=== PATIENT | male | born 2000 | race Caucasian/White ===

== ENCOUNTER 2024-07-05 04:05 | Emergency (ER) | payer BC, SELFPAY ==
[2024-07-05 04:20] VITALS: BP 163/91; PULSE 91; RESP 20; TEMP 36.6; O2SAT 99; BMI 32.1
--- NOTE | 2024-07-05 04:28 | ECG_ITS ---
[employer] Test Date: 2024-07-05 Pat Name: Ren Mckeon Department: Room: Gender: Male [employer]: : 2000 Requested By: Kenneth Rios Order Number: [id number] Sharmin MD: Rolando Samano M.D. Measurements Intervals [place] Rate: 80 P: 69 GA: 145 QRS: 55 QRSD: 100 T: 55 QT: 351 QTc: 406 Interpretive Statements SINUS RHYTHM WITH SINUS ARRHYTHMIA NONSPECIFIC T-WAVE ABNORMALITY No previous ECG available for comparison Electronically Signed On 07-05-2024 13:17:18 [employer]LECOM ENGINE[employer] by Rolando Samano M.D. [email or web address]
--- NOTE | 2024-07-05 04:34 | ED_ITS ---
Documented by User: Kenneth Rios DO 07/05/24 04:36 HPI - Chest Pain 2 General: Chief Complaint: Allergic Reaction Stated Complaint: Sob n/ tingling weak believes new med reaction Time Seen by Provider: 07/05/24 04:38 History of Present Illness: Patient presents to the ER with complaints of chest tightness and shortness of breath that woke him up in the middle of the night. Patient says he started new blood pressure pill about 2 days ago and this may be the cause of the reaction. Patient's got some anxiety and makes everything worse. Patient noticed the diffuse rash all across his chest as well. Patient is never had chest pain before and has no cardiac history. Related Data Previous Rx's Medication Instructions Recorded cefdinir 300 mg capsule 300 mg PO BID 10 days #20 caps 06/22/24 amlodipine 5 mg tablet 5 mg PO DAILY #30 tabs 07/05/24 prednisone 20 mg tablet 40 mg (2 x 20 mg) PO DAILY #6 tabs 07/05/24 Allergies Allergy/AdvReac Type Severity Reaction Status Date / Time No Known Allergies Allergy Verified 06/22/24 17:17 Review of Systems 2 General: Reports: 10 or more systems reviewed and unremarkable except in HPI and below PFSH ED 2 PFSH: Social History Smoking and tobacco/nicotine status: never used tobacco/nicotine Physical Exam 2 Const: COMMON NORMALS: no acute distress, average body habitus, patient oriented x3, no limitations, healthy appearing, alert and well nourished HENMT: COMMON NORMALS: normocephalic, atraumatic, hearing grossly normal bilaterally, external ears normal, Normal external nose present and moist oral mucous membranes HEAD & SCALP: normocephalic and atraumatic NOSE: Normal external nose present EXTERNAL EAR: Yes external ears normal Neck/C-Spine: COMMON NORMALS: no JVD Chest: OTHER: Widespread red blotchy rash across the entire trunk region Resp: COMMON NORMALS: normal respiratory effort, No retractions, No use of accessory muscles and clear to auscultation bilaterally AUSCULTATION: clear to auscultation bilaterally Cardio: COMMON NORMALS: no JVD, regular rate, regular rhythm, S1 normal heart sound present, S2 normal heart sound present, No gallops present (Cardio), No clicks present (Cardio), No murmurs present (Cardio) and No rub (Cardio) R ATE: regular rate RHYTHM: regular rhythm HEART SOUNDS: S1 normal heart sound present and S2 normal heart sound present GI: COMMON NORMALS: Normal to inspection, nondistended, normoactive bowel sounds present, Soft to palpation, non-tender, No hepatosplenomegaly present and no masses PALPATION: Yes Soft to palpation and Yes No hepatosplenomegaly present Neuro: COMMON NORMALS: patient oriented x3 SENSORIUM/ORIENTATION: Yes alert Course 2 Vital Signs: Vital signs: Vital Signs Temperature 98 F 07/05/24 04:20 Pulse Rate 60 07/05/24 06:13 Respiratory Rate 11 L 07/05/24 06:13 Blood Pressure 138/61 07/05/24 06:13 Pulse Oximetry 96 07/05/24 06:13 MDM - Chest Pain Medical Records I reviewed the patient's medical records. Lab Data I reviewed the patient's lab results. 07/05/24 04:34 07/05/24 05:30 Laboratory Results WBC 8.19 10^3/uL (3.29-11.43) 07/05/24 04:34 RBC 5.14 10^6/uL (3.85-5.65) 07/05/24 04:34 Hgb 14.90 g/dL (11.27-16.99) 07/05/24 04:34 Hct 44.5 % (37-53) 07/05/24 04:34 MCV 86.6 fl (82-101) 07/05/24 04:34 MCH 29.0 pg (27-33) 07/05/24 04:34 MCHC 33.5 g/dL (30-55) 07/05/24 04:34 RDW 12.3 % (12.1-15.1) 07/05/24 04:34 Plt Count 270 10^3/cmm (157-399) 07/05/24 04:34 MPV 10.5 fL (7.4-10.4) H 07/05/24 04:34 Neut % (Auto) 63.5 % 07/05/24 04:34 Lymph % (Auto) 26.3 % 07/05/24 04:34 [place] % (Auto) 5.3 % 07/05/24 04:34 Eos % (Auto) 4.0 % 07/05/24 04:34 Baso % (Auto) 0.7 % 07/05/24 04:34 Neut # (Auto) 5.20 10^3/uL (1.8-7.7) 07/05/24 04:34 Lymph # (Auto) 2.2 10^3/uL (0.8-4.8) 07/05/24 04:34 [place] # (Auto) 0.4 10^3/uL (0.2-0.9) 07/05/24 04:34 Eos # (Auto) 0.3 10^3/uL (0.0-0.8) 07/05/24 04:34 Baso # (Auto) 0.1 10^3/uL (0.0-0.1) 07/05/24 04:34 Nucleated RBC % (auto) 0 % 07/05/24 04:34 Nucleated RBCs # 0.0 /100WBC 07/05/24 04:34 Sodium 139 mmol/L (136-145) 07/05/24 05:30 Potassium 3.9 mmol/L (3.5-5.1) 07/05/24 05:30 Chloride 103 mmol/L (98-107) 07/05/24 05:30 Carbon Dioxide 25 mmol/L (22-29) 07/05/24 05:30 Anion Gap 14.9 (5-19) 07/05/24 05:30 BUN 15 mg/dL (6-20) 07/05/24 05:30 Creatinine 1.1 mg/dL (0.7-1.2) 07/05/24 05:30 GFR Calculation 81.6 mL/min (90-130) L 07/05/24 05:30 Glucose 95 mg/dL (65-115) 07/05/24 05:30 Calculated Osmolality 289 mOsm/kg (285-295) 07/05/24 05:30 Calcium 9.7 mg/dL (8.5-10.5) 07/05/24 05:30 Total Bilirubin 0.6 mg/dL (0.15-1.2) 07/05/24 05:30 AST 25 U/L (0-40) 07/05/24 05:30 ALT 24 U/L (0-41) 07/05/24 05:30 Alkaline Phosphatase 69 U/L (40-130) 07/05/24 05:30 Troponin T Baseline < 6 ng/L (0-15) 07/05/24 05:30 Total Protein 6.7 g/dL (6.6-8.7) 07/05/24 05:30 Albumin 4.5 g/dL (3.5-5.2) 07/05/24 05:30 Globulin 2.2 g/dL (1.3-4.6) 07/05/24 05:30 Discharge Plan Discharge Patient Disposition: Home Clinical Impression: Allergic reaction Condition: Stable Prescriptions: New amlodipine 5 mg tablet 5 mg PO DAILY Qty: 30 0RF prednisone 20 mg tablet 40 mg PO DAILY Qty: 6 0RF No Action cefdinir 300 mg capsule 300 mg PO BID 10 Days Qty: 20 0RF Discharge Orders: Discharge ED (Routine); Ordered 07/05/24 Ordered By: Rhonda Royal Discharge Diet: Advance as tolerated Discharge Activity: Resume usual activity Patient Instructions: Allergic Reaction, Opioid Safety, Pain Management Activity Restrictions/Additional Instructions: Stop taking your current blood pressure medication. Take the amlodipine [address] of the current medication have been taking. Take the prednisone daily for the next 3 days. Take Pepcid and Benadryl or Claritin as needed. Return if you have any worsening or recurrent symptoms. Follow-up as needed with your primary care provider Coding Level of Care Code ED [employer] for [employer] Documented by User: Rhonda Royal MD 07/05/24 07:27 HPI - Chest Pain 2 General: Chief Complaint: Allergic Reaction Stated Complaint: Sob n/ tingling weak believes new med reaction Time Seen by Provider: 07/05/24 04:38 Related Data Previous Rx's Medication Instructions Recorded cefdinir 300 mg capsule 300 mg PO BID 10 days #20 caps 06/22/24 amlodipine 5 mg tablet 5 mg PO DAILY #30 tabs 07/05/24 prednisone 20 mg tablet 40 mg (2 x 20 mg) PO DAILY #6 tabs 07/05/24 Allergies Allergy/AdvReac Type Severity Reaction Status Date / Time No Known Allergies Allergy Verified 06/22/24 17:17 [facility] ED 2 PFSH: Social History Smoking and tobacco/nicotine status: never used tobacco/nicotine Course 2 Vital Signs: Vital signs: Vital Signs Temperature 98 F 07/05/24 04:20 Pulse Rate 60 07/05/24 06:13 Respiratory Rate 11 L 07/05/24 06:13 Blood Pressure 138/61 07/05/24 06:13 Pulse Oximetry 96 07/05/24 06:13 MDM - Chest Pain Medical Decision Making Patient has been given IV steroids as well as IV antihistamines including Solu- Medrol, Pepcid and Benadryl. Symptoms have completely resolved. Workup is unremarkable. Most likely this is an allergic reaction to his antihypertensive which is started 2 days ago. Will have him stop that and we will place him on amlodipine 5 mg daily. Have instructed him to monitor his blood pressure twice daily on the new medication. Will place him on prednisone 40 mg daily for the next 3 days in addition, he can take Pepcid and Benadryl as needed. Lab Data Laboratory studies are unremarkable including a normal white blood cell count of 8.19. Hemoglobin is stable at 14.9. Platelet count is normal. Patient's electrolytes are normal. He has normal renal function. Glucose is 95. Troponin is less than 6. Do not feel the patient needs further troponin studies or EKG as he had a very short episode of chest pain, some time during the night, upon waking a second time his symptoms, he did not have further chest pain. He was chest pain-free upon arrival here. EKG and troponin are both negative. Do not feel this is cardiac. Feels most likely an allergic reaction related to his new antihypertensive 07/05/24 04:34 07/05/24 05:30 Laboratory Results WBC 8.19 10^3/uL (3.29-11.43) 07/05/24 04:34 RBC 5.14 10^6/uL (3.85-5.65) 07/05/24 04:34 Hgb 14.90 g/dL (11.27-16.99) 07/05/24 04:34 Hct 44.5 % (37-53) 07/05/24 04:34 MCV 86.6 fl (82-101) 07/05/24 04:34 MCH 29.0 pg (27-33) 07/05/24 04:34 MCHC 33.5 g/dL (30-55) 07/05/24 04:34 RDW 12.3 % (12.1-15.1) 07/05/24 04:34 Plt Count 270 10^3/cmm (157-399) 07/05/24 04:34 MPV 10.5 fL (7.4-10.4) H 07/05/24 04:34 Neut % (Auto) 63.5 % 07/05/24 04:34 Lymph % (Auto) 26.3 % 07/05/24 04:34 [place] % (Auto) 5.3 % 07/05/24 04:34 Eos % (Auto) 4.0 % 07/05/24 04:34 Baso % (Auto) 0.7 % 07/05/24 04:34 Neut # (Auto) 5.20 10^3/uL (1.8-7.7) 07/05/24 04:34 Lymph # (Auto) 2.2 10^3/uL (0.8-4.8) 07/05/24 04:34 [place] # (Auto) 0.4 10^3/uL (0.2-0.9) 07/05/24 04:34 Eos # (Auto) 0.3 10^3/uL (0.0-0.8) 07/05/24 04:34 Baso # (Auto) 0.1 10^3/uL (0.0-0.1) 07/05/24 04:34 Nucleated RBC % (auto) 0 % 07/05/24 04:34 Nucleated RBCs # 0.0 /100WBC 07/05/24 04:34 Sodium 139 mmol/L (136-145) 07/05/24 05:30 Potassium 3.9 mmol/L (3.5-5.1) 07/05/24 05:30 Chloride 103 mmol/L (98-107) 07/05/24 05:30 Carbon Dioxide 25 mmol/L (22-29) 07/05/24 05:30 Anion Gap 14.9 (5-19) 07/05/24 05:30 BUN 15 mg/dL (6-20) 07/05/24 05:30 Creatinine 1.1 mg/dL (0.7-1.2) 07/05/24 05:30 GFR Calculation 81.6 mL/min (90-130) L 07/05/24 05:30 Glucose 95 mg/dL (65-115) 07/05/24 05:30 Calculated Osmolality 289 mOsm/kg (285-295) 07/05/24 05:30 Calcium 9.7 mg/dL (8.5-10.5) 07/05/24 05:30 Total Bilirubin 0.6 mg/dL (0.15-1.2) 07/05/24 05:30 AST 25 U/L (0-40) 07/05/24 05:30 ALT 24 U/L (0-41) 07/05/24 05:30 Alkaline Phosphatase 69 U/L (40-130) 07/05/24 05:30 Troponin T Baseline < 6 ng/L (0-15) 07/05/24 05:30 Total Protein 6.7 g/dL (6.6-8.7) 07/05/24 05:30 Albumin 4.5 g/dL (3.5-5.2) 07/05/24 05:30 Globulin 2.2 g/dL (1.3-4.6) 07/05/24 05:30 No radiology studies performed this visit Discharge Plan Discharge Patient Disposition: Home Clinical Impression: Allergic reaction Condition: Stable Prescriptions: New amlodipine 5 mg tablet 5 mg PO DAILY Qty: 30 0RF prednisone 20 mg tablet 40 mg PO DAILY Qty: 6 0RF No Action cefdinir 300 mg capsule 300 mg PO BID 10 Days Qty: 20 0RF Discharge Orders: Discharge ED (Routine); Ordered 07/05/24 Ordered By: Rhonda Royal Discharge Diet: Advance as tolerated Discharge Activity: Resume usual activity Patient Instructions: Allergic Reaction, Opioid Safety, Pain Management Activity Restrictions/Additional Instructions: Stop taking your current blood pressure medication. Take the amlodipine [address] of the current medication have been taking. Take the prednisone daily for the next 3 days. Take Pepcid and Benadryl or Claritin as needed. Return if you have any worsening or recurrent symptoms. Follow-up as needed with your primary care provider Coding Level of Care Code ED [employer] for [place]
[2024-07-05 04:39] LABS: Basophils # 0.1 10^3/uL (0.0-0.1); Basophils % 0.7 %; Eosinophils # 0.3 10^3/uL (0.0-0.8); Hematocrit 44.5 % (37-53); Lymphocytes # 2.2 10^3/uL (0.8-4.8); Lymphocytes % 26.3 %; Mean Corpuscular HGB Conc 33.5 g/dL (30-55); Mean Corpuscular Volume 86.6 fl (82-101); Mean Platelet Volume 10.5 fL (7.4-10.4); Monocytes # 0.4 10^3/uL (0.2-0.9); Monocytes % 5.3 %; Neutrophils % 63.5 %; Nucleated Red Blood Cells % 0 %; Platelet Count 270 10^3/cmm (157-399); Red Blood Count 5.14 10^6/uL (3.85-5.65); Red Cell Distribution Width 12.3 % (12.1-15.1); White Blood Count 8.19 10^3/uL (3.29-11.43)
[2024-07-05] MEDS: methylPREDNISolone sod succ 125 mg/2 mL INJ IVP (04:41)
[2024-07-05] MEDS: famotidine 20 mg/2 mL INJ 40 MG IVP (04:41)
[2024-07-05] MEDS: diphenhydrAMINE 50 mg/mL SDV 1mL IVP (04:41)
[2024-07-05 05:11] VITALS: BP 125/78; PULSE 71; RESP 10; O2SAT 97
[2024-07-05 05:59] LABS: Alanine Aminotransferase 24 U/L (0-41); Albumin Level 4.5 g/dL (3.5-5.2); Alkaline Phosphatase 69 U/L (40-130); Blood Urea Nitrogen 15 mg/dL (6-20); Calcium 9.7 mg/dL (8.5-10.5); Carbon Dioxide 25 mmol/L (22-29); Chloride 103 mmol/L (98-107); Creatinine Clr Calc Pharmacy 137.4761; Globulin 2.2 g/dL (1.3-4.6); Glomerular Filtration Rate 81.6 mL/min (90-130); Glucose 95 mg/dL (65-115); Osmolality Calculated 289 mOsm/kg (285-295); Sodium 139 mmol/L (136-145); Total Bilirubin 0.6 mg/dL (0.15-1.2); Total Protein 6.7 g/dL (6.6-8.7)
[2024-07-05 06:00] LABS: Anion Gap 14.9 (5-19); Aspartate Amino Transferase 25 U/L (0-40); Potassium 3.9 mmol/L (3.5-5.1)
[2024-07-05 06:02] LABS: Troponin(5th) Baseline < 6 ng/L (0-15)
[2024-07-05 06:13] VITALS: BP 138/61; PULSE 60; RESP 11; O2SAT 96
[2024-07-05 07:29] VITALS: BP 134/80; PULSE 74; O2SAT 98
== END 2024-07-05 07:32 | disposition home or self-care (01) ==
PROVIDERS: Emergency Medicine; Emergency Provider Emergency Medicine
DX: T78.40XA Allergy, unspecified, initial encounter (principal); X58.XXXA Exposure to other specified factors, initial encounter
CPT/HCPCS: 80053; 84484; 85025; 93005; 96374; 96375; 99284; J1200; J2919; J3490

== ENCOUNTER → 2025-03-31 08:22 | Outpatient (BNVA) | payer BC, SELFPAY | PROVIDERS: Visit Provider Registered Nurse Neonatal Intensive Care | DX: J02.9 Acute pharyngitis, unspecified (principal) | CPT/HCPCS: 87880 ==